=== PATIENT | female | born 1955 | race African-American/Black ===

== ENCOUNTER 2018-10-05 20:23 | Inpatient (IN) | payer OTHER ==
[~2018-10-05] VITALS: Ht 157.5 cm; Wt 94.1 kg
[~2018-10-05 20:23] MED LIST: AMBIEN10 MG PO; CELLCEPT250 MG PO; NOR10T PO; PRE20 PO; PROAIR HFA0.09 MG/A1 IH; SPIRIVA18 MC1 IH
[2018-10-05 20:46] VITALS: Ht 157.5 cm; Wt 94.1 kg
[2018-10-05 21:49] LABS: BASOPHIL % 0.2 % (0-2); PLATELET COUNT 248 x10^3mcL (130-400); RED CELL DISTRIBUTION WIDTH 14.3 % (11.5-14.5)
[2018-10-05 21:56] LABS: CALCIUM 9.2 mg/dL (8.5-10.1); CARBON DIOXIDE 31.1 mmol/L (21-32); POTASSIUM SERUM 3.8 mmol/L (3.5-5.1)
[2018-10-05 22:01] LABS: ALBUMIN 3.3 g/dL (3.4-5.0); BILIRUBIN TOTAL 0.3 mg/dL (0.20-1.00); TOTAL PROTEIN, SERUM 7.2 g/dL (6.4-8.2)
[2018-10-06] MEDS ORDERED: ESBRIET267 M1 (00:40)
[2018-10-06] MEDS ORDERED: LEXAPRO5 M1 (00:40)
[2018-10-06] MEDS ORDERED: MUCINEX600 MG (00:40)
[2018-10-06] MEDS ORDERED: AMBIEN10 MG (00:41)
[2018-10-06] MEDS ORDERED: GLUCOPHAGE XR500 MG (00:41)
[2018-10-06 00:55] LABS: UA SPECIFIC GRAVITY 1.025 (1.005-1.035); microscopic required? YES; urine erythrocyte NEGATIVE (NEGATIVE)
[2018-10-06 01:37] VITALS: BP 149/65
[2018-10-06 02:40] LABS: MAGNESIUM 1.8 mg/dL (1.8-2.4); PHOSPHOROUS 2.3 mg/dL (2.5-4.9)
[2018-10-06 02:41] LABS: CHOLESTEROL/HDL RATIO 2.9
[2018-10-06 05:18] VITALS: BP 123/62
[2018-10-06 06:59] LABS: CALCIUM 8.6 mg/dL (8.5-10.1); CARBON DIOXIDE 27.2 mmol/L (21-32); CHLORIDE SERUM 105 mmol/L (98-107); CREATININE SERUM 0.9 mg/dL (0.6-1.0); GFR1 > 60 mL/min; GLUCOSE SERUM 127 mg/dL (74-106); PHOSPHOROUS 2.9 mg/dL (2.5-4.9); POTASSIUM SERUM 3.9 mmol/L (3.5-5.1); SODIUM SERUM 141 mmol/L (136-145)
[2018-10-06 09:18] VITALS: BP 130/72
[2018-10-06 11:30] LABS: PLATELET COUNT 216 x10^3mcL (130-400); RED CELL DISTRIBUTION WIDTH 14.4 % (11.5-14.5)
[2018-10-06 13:49] LABS: BAND NEUTROPHIL 0 % (0-10); BASOPHIL 0 % (0-2); MONOCYTE 18 % (0-7); PLATELET MORPHOLOGY PLATELETS DECREASED; SEGMENTED NEUTROPHILS 57 % (37-75)
[2018-10-06 13:50] LABS: rbc morphology (normal/abnorm) ABNORMAL (NORMAL)
[2018-10-06 17:03] VITALS: BP 119/65
[2018-10-06 20:28] VITALS: BP 121/62
[2018-10-07 05:16] VITALS: BP 121/66
[2018-10-07 06:37] LABS: BASOPHIL % 0.3 % (0-2); PLATELET COUNT 224 x10^3mcL (130-400)
[2018-10-07 06:45] LABS: RED CELL DISTRIBUTION WIDTH 14.7 % (11.5-14.5)
[2018-10-07 07:04] LABS: CALCIUM 8.8 mg/dL (8.5-10.1); CARBON DIOXIDE 26.3 mmol/L (21-32); CHLORIDE SERUM 106 mmol/L (98-107); CREATININE SERUM 0.7 mg/dL (0.6-1.0); GFR1 > 60 mL/min; GLUCOSE SERUM 93 mg/dL (74-106); MAGNESIUM 1.9 mg/dL (1.8-2.4); PHOSPHOROUS 3.1 mg/dL (2.5-4.9); SODIUM SERUM 142 mmol/L (136-145)
[2018-10-07 10:15] VITALS: BP 113/56
[2018-10-07 12:35] VITALS: BP 125/48
[2018-10-07 17:00] VITALS: BP 112/54
[2018-10-07 20:43] VITALS: BP 124/47
[2018-10-08 05:41] VITALS: BP 118/68
[2018-10-08 07:03] LABS: CALCIUM 8.7 mg/dL (8.5-10.1); CARBON DIOXIDE 27.7 mmol/L (21-32); CHLORIDE SERUM 110 mmol/L (98-107); CREATININE SERUM 0.7 mg/dL (0.6-1.0); GFR1 > 60 mL/min; GLUCOSE SERUM 130 mg/dL (74-106); MAGNESIUM 1.9 mg/dL (1.8-2.4); PHOSPHOROUS 2.8 mg/dL (2.5-4.9); POTASSIUM SERUM 3.7 mmol/L (3.5-5.1); SODIUM SERUM 145 mmol/L (136-145)
[2018-10-08 07:46] LABS: BASOPHIL % 0.2 % (0-2); PLATELET COUNT 200 x10^3mcL (130-400); RED CELL DISTRIBUTION WIDTH 14.5 % (11.5-14.5)
[2018-10-08 09:38] VITALS: BP 138/74
[2018-10-08 13:08] VITALS: BP 133/57
[2018-10-08 17:31] VITALS: BP 132/75
[2018-10-08 20:29] VITALS: BP 135/88
[2018-10-09 04:57] VITALS: BP 121/65
[2018-10-09 07:03] LABS: CALCIUM 8.7 mg/dL (8.5-10.1); CARBON DIOXIDE 29.6 mmol/L (21-32); CHLORIDE SERUM 107 mmol/L (98-107); CREATININE SERUM 0.7 mg/dL (0.6-1.0); GFR1 > 60 mL/min; GLUCOSE SERUM 94 mg/dL (74-106); MAGNESIUM 1.9 mg/dL (1.8-2.4); PHOSPHOROUS 3.3 mg/dL (2.5-4.9); POTASSIUM SERUM 3.8 mmol/L (3.5-5.1); SODIUM SERUM 141 mmol/L (136-145)
[2018-10-09 07:30] LABS: BASOPHIL % 0.1 % (0-2); PLATELET COUNT 203 x10^3mcL (130-400)
[2018-10-09 07:37] LABS: RED CELL DISTRIBUTION WIDTH 14.7 % (11.5-14.5)
[2018-10-09 09:07] VITALS: BP 126/56
[2018-10-09 10:12] VITALS: BP 126/56
[2018-10-09 12:31] VITALS: BP 123/66
[2018-10-09] MEDS ORDERED: ZITHROMAX TRI-500 MG PO (13:29)
[2018-10-09 17:00] VITALS: BP 141/57
[2018-10-09 20:34] VITALS: BP 141/69
[2018-10-10 06:08] VITALS: BP 122/70
[2018-10-10 06:25] LABS: BASOPHIL % 0.2 % (0-2); PLATELET COUNT 213 x10^3mcL (130-400)
[2018-10-10 06:29] LABS: RED CELL DISTRIBUTION WIDTH 14.6 % (11.5-14.5)
[2018-10-10 06:47] LABS: CALCIUM 8.7 mg/dL (8.5-10.1); CARBON DIOXIDE 29.1 mmol/L (21-32); CHLORIDE SERUM 107 mmol/L (98-107); CREATININE SERUM 0.7 mg/dL (0.6-1.0); GFR1 > 60 mL/min; GLUCOSE SERUM 108 mg/dL (74-106); POTASSIUM SERUM 3.5 mmol/L (3.5-5.1); SODIUM SERUM 143 mmol/L (136-145)
[2018-10-10 08:27] VITALS: BP 123/68
[2018-10-10 12:31] VITALS: BP 125/67
[2018-10-10 12:58] VITALS: BP 125/67
== END 2018-10-10 15:01 | disposition home or self-care (01) | DRG 604 ==
LOC: ED 20:23 → MU 10-06 00:13 → DU 10-06 00:13 → MU 10-09 16:18
PROVIDERS: Emergency Medicine; General Practice; ADMIT Internal Medicine
DX: S00.83XA Contusion of other part of head, initial encounter (principal); J18.9 Pneumonia, unspecified organism; N39.0 Urinary tract infection, site not specified; E44.1 Mild protein-calorie malnutrition; S00.12XA Contusion of left eyelid and periocular area, initial encounter; J84.10 Pulmonary fibrosis, unspecified; S00.03XA Contusion of scalp, initial encounter; K21.9 Gastro-esophageal reflux disease without esophagitis; E11.65 Type 2 diabetes mellitus with hyperglycemia; F41.9 Anxiety disorder, unspecified; M19.90 Unspecified osteoarthritis, unspecified site; E78.5 Hyperlipidemia, unspecified; Z68.37 Body mass index [BMI] 37.0-37.9, adult; W18.39XA Other fall on same level, initial encounter; Y93.89 Activity, other specified; Y92.89 Other specified places as the place of occurrence of the external cause; Z99.81 Dependence on supplemental oxygen; Z79.52 Long term (current) use of systemic steroids
CPT/HCPCS: 82962; 83880; 97110-GP; 97116-GP; J0696; J2270; J2405; J3490; J3535; J7030; J7050; J7512; J7620; Q0092

== ENCOUNTER 2019-05-25 17:41 | Inpatient (IN) | payer OTHER ==
[~2019-05-25] VITALS: Ht 157.5 cm; Wt 90.0 kg
[~2019-05-25 17:41] MED LIST changes: +AMBIEN10 MG; +ESBRIET267 M1; +GLUCOPHAGE XR500 MG; +LEXAPRO5 M1; +MUCINEX600 MG; +ZITHROMAX TRI-500 MG PO
[2019-05-25 17:44] VITALS: Ht 157.5 cm; Wt 90.0 kg
[2019-05-25 18:59] LABS: BASOPHIL % 0 % (0-2); PLATELET COUNT 337 x10^3mcL (130-400); RED CELL DISTRIBUTION WIDTH 14.1 % (11.5-14.5)
[2019-05-25 19:09] LABS: CALCIUM 9.7 mg/dL (8.5-10.1); CARBON DIOXIDE 26.1 mmol/L (21-32); POTASSIUM SERUM 4.4 mmol/L (3.5-5.1)
[2019-05-25 19:13] LABS: ALBUMIN 2.9 g/dL (3.4-5.0); BILIRUBIN TOTAL 0.28 mg/dL (0.20-1.00); TOTAL PROTEIN, SERUM 7.5 g/dL (6.4-8.2)
[2019-05-25] MEDS ORDERED: BUDESONIDE0.25 MG/2 (21:47)
[2019-05-25] MEDS ORDERED: LIPI10 PO (21:48)
[2019-05-25] MEDS ORDERED: GOOD SENSE OMEP20 MG PO (21:48)
[2019-05-25] MEDS ORDERED: [UNRECOGNIZED DRUG - OTHER] (21:50)
[2019-05-25 23:33] LABS: CHOLESTEROL/HDL RATIO 2.1
[2019-05-26] VITALS (8 sets, daily range): BP systolic 110–132; BP diastolic 48–75
[2019-05-26 02:19] LABS: microscopic required? NO
[2019-05-26 02:22] LABS: urine erythrocyte NEGATIVE (NEGATIVE)
[2019-05-26 07:12] LABS: BASOPHIL % 0.1 % (0-2); PLATELET COUNT 319 x10^3mcL (130-400); RED CELL DISTRIBUTION WIDTH 14.5 % (11.5-14.5)
[2019-05-26 07:53] LABS: CALCIUM 9.7 mg/dL (8.5-10.1); CARBON DIOXIDE 28.1 mmol/L (21-32); CHLORIDE SERUM 102 mmol/L (98-107); CREATININE SERUM 0.9 mg/dL (0.6-1.0); GFR1 > 60 mL/min; GLUCOSE SERUM 143 mg/dL (74-106); MAGNESIUM 1.9 mg/dL (1.8-2.4); PHOSPHOROUS 4.1 mg/dL (2.5-4.9); POTASSIUM SERUM 4.5 mmol/L (3.5-5.1); SODIUM SERUM 137 mmol/L (136-145)
[2019-05-27 05:35] VITALS: BP 104/56
[2019-05-27 07:13] LABS: CALCIUM 9.5 mg/dL (8.5-10.1); CARBON DIOXIDE 29.1 mmol/L (21-32); CHLORIDE SERUM 102 mmol/L (98-107); CREATININE SERUM 0.7 mg/dL (0.6-1.0); GFR1 > 60 mL/min; GLUCOSE SERUM 139 mg/dL (74-106); MAGNESIUM 2.2 mg/dL (1.8-2.4); POTASSIUM SERUM 4.6 mmol/L (3.5-5.1); SODIUM SERUM 139 mmol/L (136-145)
[2019-05-27 07:20] LABS: PLATELET COUNT 328 x10^3mcL (130-400); RED CELL DISTRIBUTION WIDTH 13.9 % (11.5-14.5)
[2019-05-27 07:24] LABS: BASOPHIL % 0 % (0-2)
[2019-05-27 09:01] VITALS: BP 138/71
[2019-05-27 11:57] VITALS: BP 95/47
[2019-05-27 17:53] VITALS: BP 106/53
[2019-05-27 20:38] VITALS: BP 116/52
[2019-05-28 05:19] VITALS: BP 122/73
[2019-05-28 06:05] LABS: PLATELET COUNT 359 x10^3mcL (130-400); RED CELL DISTRIBUTION WIDTH 14.2 % (11.5-14.5)
[2019-05-28 06:18] LABS: CALCIUM 9.3 mg/dL (8.5-10.1); CARBON DIOXIDE 29.9 mmol/L (21-32); CHLORIDE SERUM 103 mmol/L (98-107); CREATININE SERUM 0.9 mg/dL (0.6-1.0); GFR1 > 60 mL/min; GLUCOSE SERUM 122 mg/dL (74-106); POTASSIUM SERUM 4.2 mmol/L (3.5-5.1); SODIUM SERUM 141 mmol/L (136-145)
[2019-05-28 06:21] LABS: BASOPHIL % 0 % (0-2)
[2019-05-28 08:45] VITALS: BP 121/53
[2019-05-28] MEDS ORDERED: NOVAPLUS ZOSYN50 ML IV (10:14)
[2019-05-28 12:04] VITALS: BP 112/49
[2019-05-28 17:09] VITALS: BP 134/65
[2019-05-28 17:53] VITALS: BP 134/65
== END 2019-05-28 20:25 | DRG 871 ==
LOC: ED 17:41 → DU 22:51
PROVIDERS: Emergency Medicine; ADMIT General Practice
DX: A41.9 Sepsis, unspecified organism (principal); J18.9 Pneumonia, unspecified organism; J96.21 Acute and chronic respiratory failure with hypoxia; E44.0 Moderate protein-calorie malnutrition; J84.10 Pulmonary fibrosis, unspecified; E11.65 Type 2 diabetes mellitus with hyperglycemia; F41.9 Anxiety disorder, unspecified; F32.9 Major depressive disorder, single episode, unspecified; E78.5 Hyperlipidemia, unspecified; E66.01 Morbid (severe) obesity due to excess calories; Z68.34 Body mass index [BMI] 34.0-34.9, adult; Z76.82 Awaiting organ transplant status; Z87.01 Personal history of pneumonia (recurrent); Z79.84 Long term (current) use of oral hypoglycemic drugs; Z79.52 Long term (current) use of systemic steroids
CPT/HCPCS: 36600; 82962; 83880; 85378; 87804; G0378; J0456; J0696; J1644; J2270; J2405; J2543; J2920; J2930; J7050; J7060; J7620; Q0092